=== PATIENT | male | born 1955 | race Caucasian/White ===

== ENCOUNTER 2017-12-17 01:42 | Emergency (ER) | payer MEDICAID ==
[~2017-12-17] VITALS: Ht 180.3 cm; Wt 73.0 kg
[~2017-12-17 01:42] MED LIST: LEVO500T2 PO; METR500T4 PO
[2017-12-17 02:54] VITALS: BP 122/69
== END 2017-12-17 05:17 | disposition left against medical advice (07) ==
LOC: ER 01:42
DX: Z53.21 Procedure and treatment not carried out due to patient leaving prior to being seen by health care provider (principal)

== ENCOUNTER 2017-12-17 09:12 | Emergency (ER) | payer MEDICAID ==
[~2017-12-17] VITALS: Ht 182.9 cm; Wt 73.0 kg
[2017-12-17 09:15] VITALS: BP 132/74
[2017-12-17] MEDS ORDERED: FAMOTIDINE 20MG TABLET PO ONE (10:00)
== END 2017-12-17 11:02 | disposition home or self-care (01) ==
LOC: ER 09:12
DX: K21.9 Gastro-esophageal reflux disease without esophagitis (principal); E78.00 Pure hypercholesterolemia, unspecified
CPT/HCPCS: 99282

== ENCOUNTER 2018-04-28 13:32 | Emergency (ER) | payer MEDICAID ==
[~2018-04-28 13:32] MED LIST changes: +METR-218 PO; -METR500T4 PO
== END 2018-04-28 14:01 | disposition left against medical advice (07) ==
LOC: ER 13:50
DX: R07.89 Other chest pain (principal); Z53.21 Procedure and treatment not carried out due to patient leaving prior to being seen by health care provider

== ENCOUNTER 2022-04-28 13:42 | Emergency (ER) | payer MEDICAID ==
[~2022-04-28] VITALS: Ht 177.8 cm; Wt 75.0 kg
[~2022-04-28 13:42] MED LIST changes: +METR-167 PO; -METR-218 PO
[2022-04-28] MEDS ORDERED: ASPIRIN 81MG TABLET PO ONE (18:15)
[2022-04-28 18:26] LABS: BASOPHILS % 0.7 % (0.0-2.0); EOSINOPHILS % 1.2 % (0.0-5.0); HEMATOCRIT. 43.5 % (42.0-52.0); HEMOGLOBIN. 14.7 g/dL (14.0-18.0); LYMPHOCYTES % 20.5 % (20.0-50.0); MEAN CORPUSCULAR HEMOGLOBIN 30.8 pg (28.0-32.0); MEAN CORPUSCULAR VOLUME 91.5 fL (80.0-94.0); MEAN PLATELET VOLUME 8.6 fl (7.4-10.4); MONOCYTES % 12.7 % (2.0-8.0); NEUTROPHILS % 64.9 % (40.0-76.0); PLATELET 244 x1000/uL (130-400); RED BLOOD CELL COUNT 4.76 mill/uL (4.7-6.1); RED CELL DISTRIBUTION WIDTH 13.8 % (11.6-14.6)
[2022-04-28 18:33] LABS: CHLORIDE 105 mEq/L (98-107)
[2022-04-28 19:32] VITALS: BP 119/72
== END 2022-04-28 19:41 | disposition home or self-care (01) ==
LOC: ER 13:42
DX: R07.89 Other chest pain (principal); E78.00 Pure hypercholesterolemia, unspecified
CPT/HCPCS: 36415; 71045; 80053; 83690; 83880; 84484; 85025; 93005; 99285; Z7610